=== PATIENT | male | born 1960 | race Native Hawaiian/Other Pacific Islander ===

== ENCOUNTER 2022-08-28 22:52 | Emergency (ER) | payer BC ==
[~2022-08-28] VITALS: Ht 180.3 cm; Wt 103.4 kg
[2022-08-29 00:12] VITALS: BP 128/78; TEMP 98.3
== END 2022-08-29 00:12 | disposition home or self-care (01) ==
LOC: ED 22:52
PROC: 0HQGXZZ Repair Left Hand Skin, External Approach (ICD-10-PCS; principal; 2022-08-28)
DX: S61.213A Laceration without foreign body of left middle finger without damage to nail, initial encounter (principal); W45.8XXA Other foreign body or object entering through skin, initial encounter; Y92.89 Other specified places as the place of occurrence of the external cause
CPT/HCPCS: 90471; 90715; 99283